=== PATIENT | female | born 1990 | race Caucasian/White ===

== ENCOUNTER 2016-12-19 10:12 | Emergency (ER) | payer MEDICARE, OTHER ==
[~2016-12-19] VITALS: Ht 160 cm; Wt 57.4 kg
[~2016-12-19 10:12] MED LIST: ABILIFY10 MG OR; AMOXICILLIN500 MG OR; CIPRO500 MG OR; CIPROFLOXACN500 MG PO; DOXYCYC MONO100 M1 PO; FLONASE NASAL50 MCG; MUCINEX600 MG PO; NO HOME MEDS; PRENATA5 OR; ROBITUSSIN AC OR; SEROQUEL50 MG OR; ZITHROMAX250 MG OR; ZITHROMAX250 MG PO; [UNRECOGNIZED DRUG - REMARK]
[2016-12-19] MEDS ORDERED: CELEXA10 MG PO (10:38)
[2016-12-19] MEDS ORDERED: SEROQUEL25 MG PO (10:39)
[2016-12-19] MEDS ORDERED: NAPROSYN500 MG PO (11:28)
[2016-12-19 11:44] VITALS: BP 103/63
[2016-12-19 13:41] LABS: URINE BILIRUBIN - DIPSTICK NEGATIVE (NEGATIVE); URINE BLOOD DIPSTICK SMALL (NEGATIVE); URINE CLARITY CLEAR; URINE COLOR YELLOW; URINE GLUCOSE - DIPSTICK NEGATIVE (NEGATIVE); URINE KETONE 15 mg/dL (NEGATIVE); URINE LEUK ESTERASE NEGATIVE (NEGATIVE); URINE NITRITE - DIPSTICK NEGATIVE (Negative); URINE PH 5.5 (4.5-8.0); URINE PROTEIN - DIPSTICK NEGATIVE (NEG-TRACE); URINE SPECIFIC GRAVITY 1.025; URINE SQUAMOUS EPITHELIAL CELL FEW EPI/hpf (0-FEW); URINE UROBILINOGEN - DIPSTICK 0.2 E.U./dL (0.2)
== END 2016-12-19 11:44 | disposition home or self-care (01) ==
LOC: ED 10:12
PROVIDERS: Emergency Medicine
DX: S93.602A Unspecified sprain of left foot, initial encounter (principal); W11.XXXA Fall on and from ladder, initial encounter; Y93.E9 Activity, other interior property and clothing maintenance; Y92.009 Unspecified place in unspecified non-institutional (private) residence as the place of occurrence of the external cause

== ENCOUNTER 2018-05-07 12:29 | Emergency (ER) | payer MEDICARE, OTHER ==
[~2018-05-07 12:29] MED LIST changes: +CELEXA10 MG PO; +FATHER JOHNS PO; +NAPROSYN500 MG PO; +SEROQUEL25 MG PO; +THERAFL6 PO
== END 2018-05-07 12:40 | disposition left against medical advice (07) ==
LOC: ED 12:29 → LWOBS 12:40
DX: Z91.19 Patient's noncompliance with other medical treatment and regimen (principal)

== ENCOUNTER 2021-01-21 17:44 | Emergency (ER) | payer MEDICARE ==
[~2021-01-21] VITALS: Ht 160 cm; Wt 72.0 kg
[2021-01-21 18:48] VITALS: BP 117/72
== END 2021-01-21 18:48 | disposition home or self-care (01) ==
LOC: ED 17:44
DX: B08.4 Enteroviral vesicular stomatitis with exanthem (principal); F31.9 Bipolar disorder, unspecified